=== PATIENT | female | born 1980 | race Caucasian/White ===

== ENCOUNTER 2024-01-16 11:04 | Outpatient (REF) | payer MEDICAID, SELFPAY ==
[2024-01-16 12:11] LABS: MANUAL DIFF FLAG NO
[2024-01-16 12:21] LABS: Basophils Absolute Auto 0.1 X10*3/uL (0.0-0.2); Basophils Percent Auto 0.5 % (0-2); Eosinophils Absolute Auto 0.2 X10*3/uL (0.0-0.4); Eosinophils Percent Auto 2.2 % (0-4); Hematocrit 39.6 % (37.0-47.0); Hemoglobin 13.8 g/dl (12.0-16.0); Imm Gran Abs Auto 0.04 X10*3/uL (0.00-0.03); Imm Gran Pct Auto 0.4 % (0.0-0.4); Lymphocytes Absolute Auto 1.8 X10*3/uL (1.2-4.9); Mean Corpuscular HGB Conc 34.8 g/dl (31.0-35.0); Mean Corpuscular Hemoglobin 32.8 pg (27.0-33.0); Mean Corpuscular Volume 94.1 fL (80.0-98.0); Mean Platelet Volume 9.2 fL (9.4-12.3); Monocytes Absolute Auto 0.7 X10*3/uL (0.1-1.2); Monocytes Percent Auto 5.9 % (2-11); Neutrophils Absolute Auto 8.4 x10*3/uL (2.0-8.3); Platelet Count 249 X10*3/uL (160-400); Red Blood Count 4.21 X10*6/uL (4.20-5.50); Red Cell Distribution Width 13.9 % (11.0-16.0); White Blood Count 11.1 X10*3/uL (4.8-10.8)
[2024-01-16 12:35] LABS: Estimated Average Glucose 85 mg/dL; Hemoglobin A1c % 4.6 % (<6.0)
[2024-01-16 13:19] LABS: Alanine Aminotransferase 12 U/L (0-31); Albumin Level 4.2 g/dL (3.5-5.0); Alkaline Phosphatase 39 U/L (39-117); Anion Gap 15 (12-20); Aspartate Amino Transferase 15 U/L (5-31); Bilirubin Total 0.3 mg/dL (0.0-1.0); Blood Urea Nitrogen 17 mg/dL (9-16); Calcium 9.4 mg/dL (8.4-10.2); Carbon Dioxide 24 mmol/L (22-29); Chloride 109 mmol/L (96-108); Cholesterol 181 mg/dL (<200); Estimated Glomerular Filt Rate > 60; Glucose Random 83 mg/dL (60-115); HDL Cholesterol 33 mg/dL (>40); Iron 88 mcg/dL (30-160); Percent Iron Saturation 30 % (15-50); Potassium 4.2 mmol/L (3.3-5.1); Sodium 144 mmol/L (135-145); Total Iron Binding Capacity 295 mcg/dL (228-428); Total Protein 7.8 g/dL (6.5-8.0); Triglycerides 416 mg/dL (<150); Unsaturated Iron Binding 207 ug/dL
[2024-01-16 13:38] LABS: Folate 12.2 ng/mL (> or = 4.0); Vitamin B12 468 pg/mL (200-900)
[2024-01-16 13:40] LABS: Ferritin 146 ng/mL (10-250); TSH reflex Free T4 3.98 uIU/mL (0.32-4.0)
[2024-01-16 14:24] LABS: Reflex LDLD? Yes
[2024-01-17 03:22] LABS: Syphilis Screen Nonreactive (Nonreactive)
[2024-01-17 04:05] LABS: HBS Num1 34.54 mIU/mL (0-7.99); HBc Num1 0.11 S/CO (0.00-0.79); HBsAGNum1 0.28 S/CO (0.00-0.99); HIV AB/AG Nonreactive (Nonreactive); HIV Num 1 0.06 S/CO (0.00-0.99); Hepatitis A Antibody IgG Nonreactive (Nonreactive); Hepatitis B Core Antibody Nonreactive (Nonreactive); Hepatitis B Surface Antigen Negative (Negative); ~HepC Num1 0.11 S/CO (0.00-0.79); ~Hepatitis A Antibody IgG 0.53 S/CO (0.00-0.99); ~Hepatitis B Surface Antibody REACTIVE (Nonreactive); ~Hepatitis C Antibody Nonreactive (Nonreactive)
[2024-01-17 21:13] LABS: LDL Cholesterol Direct 85 mg/dL (<100)
== END 2024-01-16 11:05 | disposition home or self-care (01) ==
LOC: HO.HHCL 11:04
PROVIDERS: Visit Provider Family Medicine
DX: Z01.84 Encounter for antibody response examination (principal); Z11.3 Encounter for screening for infections with a predominantly sexual mode of transmission; Z11.4 Encounter for screening for human immunodeficiency virus [HIV]; E03.9 Hypothyroidism, unspecified; I10 Essential (primary) hypertension; E78.00 Pure hypercholesterolemia, unspecified; D50.0 Iron deficiency anemia secondary to blood loss (chronic)
CPT/HCPCS: 36415; 80053; 80061; 82607; 82728; 82746; 83036; 83540; 83721; 84443; 85025; 86704; 86706; 86708; 86780; 86803; 87340; 87389

== ENCOUNTER 2024-09-17 14:44 | Outpatient (REF) | payer MEDICAID, SELFPAY ==
[2024-09-17 16:51] LABS: Cholesterol 185 mg/dL (<200); HDL Cholesterol 35 mg/dL (>40); LDL Cholesterol Calculated 89 mg/dL (<100); Triglycerides 305 mg/dL (<150)
[2024-09-17 17:09] LABS: TSH reflex Free T4 5.69 uIU/mL (0.32-4.0)
[2024-09-17 17:39] LABS: Reflex LDLD? No
[2024-09-17 18:07] LABS: Free T4 (Free Thyroxine) 1.08 ng/dL (0.71-1.85)
== END 2024-09-17 14:45 | disposition home or self-care (01) ==
LOC: HO.HHCL 14:44
PROVIDERS: Visit Provider Family Medicine
DX: E78.00 Pure hypercholesterolemia, unspecified (principal); E03.9 Hypothyroidism, unspecified
CPT/HCPCS: 36415; 80061; 84439; 84443

== ENCOUNTER 2024-12-23 11:51 | Outpatient (REF) | payer MEDICAID, SELFPAY ==
[2024-12-23 14:32] LABS: TSH reflex Free T4 3.12 uIU/mL (0.32-4.0)
== END 2024-12-23 11:52 | disposition home or self-care (01) ==
LOC: HO.HHCL 11:51
PROVIDERS: Visit Provider Family Medicine
DX: E03.9 Hypothyroidism, unspecified (principal)
CPT/HCPCS: 36415; 84443